=== PATIENT | female | born 1955 | race Caucasian/White ===

== ENCOUNTER 2018-01-12 17:47 | Emergency (ER) | payer OTHER ==
[2018-01-12] MEDS: IBUPROFEN 600 MG TAB PO (22:30)
== END 2018-01-12 22:39 | disposition home or self-care (01) ==
LOC: FTE 17:47
DX: M54.2 Cervicalgia (principal); R51 Headache
CPT/HCPCS: 70450; 72125; 99285-25

== ENCOUNTER 2019-03-13 10:27 | Emergency (ER) | payer OTHER ==
[2019-03-13] MEDS: ACETAMINOPHEN 500 MG TAB PO (11:06)
[2019-03-13] MEDS: IBUPROFEN 600 MG TAB PO (11:06)
== END 2019-03-13 11:07 | disposition home or self-care (01) ==
LOC: E/R 10:27
DX: R07.89 Other chest pain (principal); I10 Essential (primary) hypertension
CPT/HCPCS: 71045; 99283-25